=== PATIENT | male | born 1985 | race Caucasian/White ===

== ENCOUNTER 2022-07-31 09:54 | Inpatient (IN) | payer OTHER ==
[2022-07-31 10:32] VITALS: BMI 32.5
[2022-07-31] MEDS ORDERED: DICYCLOMINE HCL 10 MG CAPSULE PO PRN (12:00)
[2022-07-31] MEDS ORDERED: MAGNESIUM HYDROX 2400MG/30ML ORAL SUSPENSION 30 ML CUP PO PRN (12:00)
[2022-07-31] MEDS ORDERED: MAGNESIUM CITRATE 300 ML BOTTLE PO PRN (12:00)
[2022-07-31] MEDS ORDERED: LOPERAMIDE HCL 2 MG CAPSULE PO PRN (12:00)
[2022-07-31] MEDS ORDERED: ONDANSETRON *ODT* 4 MG TABLET SL PRN (12:00)
[2022-07-31] MEDS ORDERED: chlordiazePOXIDE HCL 25 MG CAPSULE PO PRN (12:00)
[2022-07-31] MEDS ORDERED: ACETAMINOPHEN 325 MG TABLET (FP) PO PRN ×2 (12:00)
[2022-07-31] MEDS ORDERED: IBUPROFEN 400 MG TABLET (FP) PO PRN (12:00)
[2022-07-31] MEDS ORDERED: IBUPROFEN 600 MG TABLET (FP) PO PRN (12:00)
[2022-07-31] MEDS ORDERED: MAG HYDROX/AL HYDROX/SIMETH 30 ML UNIT-DOSE CUP PO PRN (12:00)
[2022-07-31] MEDS ORDERED: BISMUTH SUBSALICYLATE 262 MG/15 ML BTL PO PRN (12:00)
[2022-07-31] MEDS ORDERED: NALOXONE HCL (KLOXXADO) 8 MG SPRAY NS PRN (12:00)
[2022-07-31] MEDS ORDERED: FLU VACC QS2022-23(6MOS UP)/PF 60 MCG/0.5 ML SYRINGE IM ONE (12:00)
[2022-07-31] MEDS ORDERED: BENZOCAINE/MENTHOL (CHLORASEPTIC ) LOZENGE MM PRN (12:00)
[2022-07-31] MEDS: NICOTINE 10 MG CARTRIDGE (INHALER) IH PRN ×2 (13:05→20:07)
[2022-07-31] MEDS: NICOTINE 21 MG/24 HOURS TOPICAL PATCH TD SCH (13:09)
[2022-07-31] MEDS: PRENATAL VITAMINS W/ FOLIC ACID TABLET (FP) PO SCH (13:09)
[2022-07-31] MEDS: hydrOXYzine PAMOATE 25 MG CAPSULE (FP) PO SCH ×3 (13:19→22:34)
[2022-07-31 15:39] LABS: HEMATOCRIT 42.8 % (35.4-49); HEMOGLOBIN 14.7 GM/dL (11.7-16.9); MCH 29.5 pg (25.7-33.7); MCHC 34.3 g/dl (32.0-35.9); MEAN CELL VOLUME 86.1 fl (80-96); MEAN PLT VOLUME 7.4 fl (7.5-11.1); PLATELET COUNT 251 10^3/uL (134-434); RBC 4.96 M/mm3 (4.00-5.60); RDW 14.5 % (11.9-15.9); WHITE BLOOD COUNT 6.9 K/mm3 (4.0-10.0)
[2022-07-31 15:43] LABS: CALCIUM 8.5 mg/dL (8.5-10.1)
[2022-07-31 15:44] LABS: BLOOD UREA NITROGEN 9.3 mg/dL (7-18)
[2022-07-31 15:47] LABS: CREATININE 0.7 mg/dL (0.55-1.3)
[2022-07-31 15:48] LABS: BILIRUBIN,TOTAL 0.2 mg/dL (0.2-1); TOT PROT 7.3 g/dl (6.4-8.2)
[2022-07-31] MEDS: chlordiazePOXIDE HCL 25 MG CAPSULE PO SCH ×2 (16:44→22:34)
[2022-07-31] MEDS: METHOCARBAMOL 500 MG TABLET PO PRN (16:44)
[2022-07-31] MEDS ORDERED: MELATONIN 5 MG TABLETS PO SCH (22:00)
[2022-07-31] MEDS: THIAMINE HCL 100 MG TABLET (FP) PO SCH (22:34)
[2022-07-31] MEDS: QUEtiapine FUMARATE 50 MG TABLET PO PRN (22:34)
[2022-08-01] MEDS: hydrOXYzine PAMOATE 25 MG CAPSULE (FP) PO SCH ×5 (05:36→22:14)
[2022-08-01] MEDS: chlordiazePOXIDE HCL 25 MG CAPSULE PO SCH ×4 (05:36→22:14)
[2022-08-01] MEDS: PRENATAL VITAMINS W/ FOLIC ACID TABLET (FP) PO SCH (10:46)
[2022-08-01] MEDS: METHOCARBAMOL 500 MG TABLET PO PRN ×2 (10:46→17:52)
[2022-08-01] MEDS: NICOTINE 21 MG/24 HOURS TOPICAL PATCH TD SCH (10:48)
[2022-08-01] MEDS: THIAMINE HCL 100 MG TABLET (FP) PO SCH (22:13)
[2022-08-01] MEDS: QUEtiapine FUMARATE 50 MG TABLET PO PRN (22:16)
[2022-08-02] MEDS: hydrOXYzine PAMOATE 25 MG CAPSULE (FP) PO SCH ×3 (05:56→14:52)
[2022-08-02] MEDS: chlordiazePOXIDE HCL 25 MG CAPSULE PO SCH ×2 (05:57→10:31)
[2022-08-02] MEDS: METHOCARBAMOL 500 MG TABLET PO PRN (10:30)
[2022-08-02] MEDS: PRENATAL VITAMINS W/ FOLIC ACID TABLET (FP) PO SCH (10:30)
[2022-08-02] MEDS: NICOTINE 21 MG/24 HOURS TOPICAL PATCH TD SCH (10:30)
[2022-08-02 13:07] VITALS: BP 133/67; PULSE 79; RESP 17; TEMP 98.1
[2022-08-03] MEDS ORDERED: chlordiazePOXIDE HCL 10 MG CAPSULE PO PRN
[2022-08-03] MEDS ORDERED: chlordiazePOXIDE HCL 10 MG CAPSULE PO SCH (05:00)
[2022-08-04] MEDS ORDERED: chlordiazePOXIDE HCL 10 MG CAPSULE PO SCH (05:00)
[2022-08-05] MEDS ORDERED: chlordiazePOXIDE HCL 10 MG CAPSULE PO ONE (05:00)
== END 2022-08-02 14:55 | disposition left against medical advice (07) | DRG 770 ==
LOC: YASAS 09:54 → Y6N 12:19
PROVIDERS: ADMIT Allergy & Immunology; ATTEND Surgery
PROC: HZ2ZZZZ Detoxification Services for Substance Abuse Treatment (ICD-10-PCS; principal; 2022-07-31)
DX: F10.230 Alcohol dependence with withdrawal, uncomplicated (principal); F17.210 Nicotine dependence, cigarettes, uncomplicated; F10.282 Alcohol dependence with alcohol-induced sleep disorder; F41.9 Anxiety disorder, unspecified; F90.9 Attention-deficit hyperactivity disorder, unspecified type; Z86.59 Personal history of other mental and behavioral disorders; Z56.0 Unemployment, unspecified; Z59.01 Sheltered homelessness; Z88.2 Allergy status to sulfonamides; Z88.8 Allergy status to other drugs, medicaments and biological substances; Z91.013 Allergy to seafood
CPT/HCPCS: 36415; 80053; 85027; 86780; C9803-CS; G0008; Q0162; Q2036; U0003; U0005

== ENCOUNTER 2023-04-15 12:13 | Inpatient (IN) | payer OTHER ==
[2023-04-15 13:33] VITALS: BMI 30.3
[2023-04-15] MEDS ORDERED: IBUPROFEN 400 MG TABLET (FP) PO PRN (14:05)
[2023-04-15] MEDS ORDERED: hydrOXYzine PAMOATE 25 MG CAPSULE (FP) PO PRN (14:05)
[2023-04-15] MEDS ORDERED: METHOCARBAMOL 500 MG TABLET PO PRN (14:05)
[2023-04-15] MEDS ORDERED: ACETAMINOPHEN 325 MG TABLET (FP) PO PRN (14:05)
[2023-04-15] MEDS ORDERED: MAG HYDROX/AL HYDROX/SIMETH 30 ML UNIT-DOSE CUP PO PRN (14:05)
[2023-04-15] MEDS ORDERED: NICOTINE 10 MG CARTRIDGE (INHALER) IH PRN (14:05)
[2023-04-15] MEDS ORDERED: LORazepam 1 MG TABLET PO PRN (14:05)
[2023-04-15] MEDS ORDERED: LOPERAMIDE HCL 2 MG CAPSULE PO PRN (14:05)
[2023-04-15] MEDS ORDERED: NALOXONE HCL 0.4 MG/ML VIAL IM PRN (14:05)
[2023-04-15] MEDS ORDERED: NALOXONE HCL (KLOXXADO) 8 MG SPRAY NS PRN (14:05)
[2023-04-15] MEDS ORDERED: POLYETHYLENE GLYCOL (HEALTHYLAX) 3350 17 GM PACKET PO PRN (14:05)
[2023-04-15] MEDS ORDERED: DICYCLOMINE HCL 10 MG CAPSULE PO PRN (14:05)
[2023-04-15] MEDS ORDERED: IBUPROFEN 600 MG TABLET (FP) PO PRN (14:05)
[2023-04-15] MEDS ORDERED: BISMUTH SUBSALICYLATE 262 MG/15 ML BTL PO PRN (14:05)
[2023-04-15] MEDS ORDERED: guaiFENesin 600 MG TABLET.ER (FP) PO PRN (14:05)
[2023-04-15] MEDS ORDERED: BENZONATATE 200 MG CAPSULE PO PRN (14:05)
[2023-04-15] MEDS ORDERED: BENZOCAINE/MENTHOL (CHLORASEPTIC ) LOZENGE MM PRN (14:05)
[2023-04-15] MEDS ORDERED: ONDANSETRON *ODT* 4 MG TABLET SL PRN (14:05)
[2023-04-15] MEDS ORDERED: MAGNESIUM HYDROX 2400MG/30ML ORAL SUSPENSION 30 ML CUP PO PRN (14:05)
[2023-04-15 15:41] LABS: HEMATOCRIT 44.5 % (35.4-49); HEMOGLOBIN 14.5 GM/dL (11.7-16.9); MCH 28.4 pg (25.7-33.7); MCHC 32.6 g/dl (32.0-35.9); MEAN PLT VOLUME 7.6 fl (7.5-11.1); PLATELET COUNT 266 10^3/uL (134-434); RBC 5.11 M/mm3 (4.00-5.60); RDW 14.4 % (11.9-15.9); WHITE BLOOD COUNT 5.7 K/mm3 (4.0-10.0)
[2023-04-15 15:45] LABS: CALCIUM 8.8 mg/dL (8.5-10.1); POTASSIUM 4.3 mmol/L (3.5-5.1)
[2023-04-15 15:47] LABS: BLOOD UREA NITROGEN 14.3 mg/dL (7-18)
[2023-04-15 15:50] LABS: CREATININE 0.8 mg/dL (0.55-1.3)
[2023-04-15 15:52] LABS: BILIRUBIN,TOTAL 0.3 mg/dL (0.2-1); TOT PROT 7.2 g/dl (6.4-8.2)
[2023-04-15] MEDS ORDERED: PRENATAL VITAMINS W/ FOLIC ACID TABLET (FP) PO ONE ×2 (16:00→16:01)
[2023-04-15] MEDS: PRENATAL VITAMINS W/ FOLIC ACID TABLET (FP) PO SCH (16:03)
[2023-04-15] MEDS: LORazepam 2 MG TABLET PO SCH ×2 (17:30→22:15)
[2023-04-15] MEDS ORDERED: MELATONIN 5 MG TABLETS PO SCH (22:00)
[2023-04-15] MEDS ORDERED: THIAMINE HCL 100 MG TABLET (FP) PO SCH (22:00)
[2023-04-16] MEDS: LORazepam 2 MG TABLET PO SCH ×2 (05:39→10:19)
[2023-04-16] MEDS ORDERED: NICOTINE 14 MG/24 HOURS TOPICAL PATCH TD SCH (10:00)
[2023-04-16] MEDS: PRENATAL VITAMINS W/ FOLIC ACID TABLET (FP) PO SCH (10:18)
[2023-04-16] MEDS ORDERED: LACTULOSE 20 GM/30 ML UDC (FOR ORAL USE ONLY) PO SCH (14:00)
[2023-04-16 17:18] VITALS: BP 140/85; PULSE 78; RESP 18; TEMP 97.8
[2023-04-16] MEDS ORDERED: SUVOREXANT 10 MG TABLET PO PRN (22:00)
[2023-04-17] MEDS ORDERED: LORazepam 1 MG TABLET PO SCH (05:00)
[2023-04-18] MEDS ORDERED: LORazepam 0.5 MG TABLET PO PRN
[2023-04-18] MEDS ORDERED: LORazepam 0.5 MG TABLET PO SCH (05:00)
[2023-04-19] MEDS ORDERED: LORazepam 0.5 MG TABLET PO ONE (05:00)
== END 2023-04-16 17:28 | disposition left against medical advice (07) | DRG 770 ==
LOC: YASAS 12:13 → Y3N 14:58
PROVIDERS: ADMIT Allergy & Immunology; ATTEND Surgery
PROC: HZ2ZZZZ Detoxification Services for Substance Abuse Treatment (ICD-10-PCS; principal; 2023-04-15)
DX: F10.230 Alcohol dependence with withdrawal, uncomplicated (principal); F13.10 Sedative, hypnotic or anxiolytic abuse, uncomplicated; F12.10 Cannabis abuse, uncomplicated; F17.210 Nicotine dependence, cigarettes, uncomplicated; R73.9 Hyperglycemia, unspecified; R79.89 Other specified abnormal findings of blood chemistry; Z86.59 Personal history of other mental and behavioral disorders; Z87.19 Personal history of other diseases of the digestive system; Z88.2 Allergy status to sulfonamides; Z59.02 Unsheltered homelessness; Z56.0 Unemployment, unspecified
CPT/HCPCS: 36415; 80053; 82140; 83036; 85027; 86780; 87635; 87811; 93005; 93010

== ENCOUNTER 2024-03-19 08:12 | Inpatient (IN) | payer OTHER ==
[2024-03-19 09:04] VITALS: BMI 38.3
[2024-03-19] MEDS ORDERED: IBUPROFEN 400 MG TABLET (FP) PO PRN (09:37)
[2024-03-19] MEDS ORDERED: LOPERAMIDE HCL 2 MG CAPSULE PO PRN (09:37)
[2024-03-19] MEDS ORDERED: IBUPROFEN 600 MG TABLET (FP) PO PRN (09:37)
[2024-03-19] MEDS ORDERED: BISMUTH SUBSALICYLATE 524 MG/30 ML PO PRN (09:37)
[2024-03-19] MEDS ORDERED: guaiFENesin 600 MG TABLET.ER (FP) PO PRN (09:37)
[2024-03-19] MEDS ORDERED: POLYETHYLENE GLYCOL (HEALTHYLAX) 3350 17 GM PACKET PO PRN (09:37)
[2024-03-19] MEDS ORDERED: METHOCARBAMOL 500 MG TABLET PO PRN (09:37)
[2024-03-19] MEDS ORDERED: DICYCLOMINE HCL 10 MG CAPSULE PO PRN (09:37)
[2024-03-19] MEDS ORDERED: NALOXONE HCL 0.4 MG/ML VIAL IM PRN (09:37)
[2024-03-19] MEDS ORDERED: BENZONATATE 200 MG CAPSULE PO PRN (09:37)
[2024-03-19] MEDS ORDERED: MAGNESIUM HYDROX 2400MG/30ML ORAL SUSPENSION 30 ML CUP PO PRN (09:37)
[2024-03-19] MEDS ORDERED: ACETAMINOPHEN 325 MG TABLET (FP) PO PRN (09:37)
[2024-03-19] MEDS ORDERED: NALOXONE HCL (KLOXXADO) 8 MG SPRAY NS PRN (09:37)
[2024-03-19] MEDS ORDERED: chlordiazePOXIDE HCL 25 MG CAPSULE PO PRN (09:44)
[2024-03-19] MEDS ORDERED: chlordiazePOXIDE HCL 25 MG CAPSULE ONE (10:02)
[2024-03-19] MEDS: chlordiazePOXIDE HCL 25 MG CAPSULE PO ONE (10:04)
[2024-03-19] MEDS: PRENATAL VITAMINS W/ FOLIC ACID TABLET (FP) PO SCH (10:47)
[2024-03-19] MEDS: NICOTINE 14 MG/24 HOURS TOPICAL PATCH TD SCH (10:47)
[2024-03-19] MEDS: chlordiazePOXIDE HCL 25 MG CAPSULE PO SCH (10:58)
[2024-03-19] MEDS: NICOTINE POLACRILEX 4 MG LOZENGE BC PRN (12:34)
[2024-03-19] MEDS: ONDANSETRON *ODT* 4 MG TABLET SL PRN (14:57)
[2024-03-19] MEDS: hydrOXYzine PAMOATE 25 MG CAPSULE (FP) PO PRN (14:57)
[2024-03-19] MEDS: NICOTINE POLACRILEX 4 MG GUM BUC PRN (15:01)
[2024-03-19] MEDS: THIAMINE 100 MG TABLET PO SCH (22:15)
[2024-03-19] MEDS: MELATONIN 5 MG TABLETS PO SCH (22:18)
[2024-03-20] MEDS ORDERED: ESCITALOPRAM OXALATE 10 MG TABLET ONE (11:24)
[2024-03-20] MEDS: ESCITALOPRAM OXALATE 20 MG TABLET PO SCH (11:29)
[2024-03-21] MEDS: chlordiazePOXIDE HCL 25 MG CAPSULE PO SCH (05:26)
[2024-03-21] MEDS ORDERED: ESCITALOPRAM OXALATE 10 MG TABLET ONE (10:22)
[2024-03-21 11:01] LABS: HEMATOCRIT 39.1 % (35.4-49); HEMOGLOBIN 13.3 GM/dL (11.7-16.9); MCHC 34.1 g/dl (32.0-35.9); MEAN PLT VOLUME 7.5 fl (7.5-11.1); PLATELET COUNT 161 10^3/uL (134-434); RBC 4.59 M/mm3 (4.00-5.60); RDW 14.7 % (11.9-15.9); WHITE BLOOD COUNT 4.6 K/mm3 (4.0-10.0)
[2024-03-21 11:37] LABS: CHLORIDE 108 mmol/L (98-107); POTASSIUM 4.2 mmol/L (3.5-5.1); SODIUM 139 mmol/L (136-145)
[2024-03-21 11:55] LABS: BLOOD UREA NITROGEN 10.9 mg/dL (7-18)
[2024-03-21 11:56] LABS: ALBUMIN 3.2 g/dl (3.4-5.0); ANION GAP 4 mmol/L (4-13); CALCIUM 8.5 mg/dL (8.5-10.1); CO2 28 mmol/L (21-32); GLUCOSE,RANDOM 94 mg/dL (74-106)
[2024-03-21 11:58] LABS: SGPT/ALT 56 U/L (13-61)
[2024-03-21 11:59] LABS: CREATININE 0.8 mg/dL (0.55-1.3); SGOT/AST 31 U/L (15-37)
[2024-03-21 12:00] LABS: TOT PROT 6.3 g/dl (6.4-8.2)
[2024-03-21 12:01] LABS: ALK PHOS 109 U/L (45-117); BILIRUBIN,TOTAL 0.5 mg/dL (0.2-1)
[2024-03-22] MEDS ORDERED: chlordiazePOXIDE HCL 10 MG CAPSULE PO PRN
[2024-03-22] MEDS: MAG HYDROX/AL HYDROX/SIMETH 30 ML UNIT-DOSE CUP PO PRN (04:11)
[2024-03-22] MEDS: chlordiazePOXIDE HCL 10 MG CAPSULE PO SCH (05:35)
[2024-03-22] MEDS ORDERED: ESCITALOPRAM OXALATE 10 MG TABLET ONE (10:07)
[2024-03-22] MEDS ORDERED: NICOTINE POLACRILEX 2 MG GUM BUC PRN (11:46)
[2024-03-22] MEDS ORDERED: NICOTINE POLACRILEX 2 MG GUM BC PRN (11:47)
[2024-03-22] MEDS: BENZOCAINE/MENTHOL (CHLORASEPTIC ) LOZENGE MM PRN (15:07)
[2024-03-22] MEDS: guaiFENesin 600 MG TABLET.ER (FP) PO SCH (22:27)
[2024-03-23] MEDS: chlordiazePOXIDE HCL 10 MG CAPSULE PO SCH (05:40)
[2024-03-23] MEDS ORDERED: ESCITALOPRAM OXALATE 10 MG TABLET ONE (10:05)
[2024-03-23] MEDS: NICOTINE 21 MG/24 HOURS TOPICAL PATCH TD SCH (10:05)
[2024-03-24] MEDS: chlordiazePOXIDE HCL 10 MG CAPSULE PO ONE (05:34)
[2024-03-24 06:53] VITALS: BP 119/73; PULSE 74; RESP 17; TEMP 97.3
== END 2024-03-24 08:04 | disposition home or self-care (01) | DRG 775 ==
LOC: YASAS 08:12 → SUATTDRO 08:12 → Y6N 10:15
PROVIDERS: ADMIT Allergy & Immunology; ATTEND Psychiatry & Neurology Pain Medicine
PROC: HZ2ZZZZ Detoxification Services for Substance Abuse Treatment (ICD-10-PCS; principal; 2024-03-19)
DX: F10.230 Alcohol dependence with withdrawal, uncomplicated (principal); F12.20 Cannabis dependence, uncomplicated; F17.210 Nicotine dependence, cigarettes, uncomplicated; F10.280 Alcohol dependence with alcohol-induced anxiety disorder; F10.282 Alcohol dependence with alcohol-induced sleep disorder; F33.1 Major depressive disorder, recurrent, moderate; F41.9 Anxiety disorder, unspecified; K74.60 Unspecified cirrhosis of liver; Z87.19 Personal history of other diseases of the digestive system; Z86.59 Personal history of other mental and behavioral disorders; Z86.69 Personal history of other diseases of the nervous system and sense organs; Z88.2 Allergy status to sulfonamides
CPT/HCPCS: 36415; 80053; 80305; 80307; 82140; 85027; 86780; 93005; 93010; Q0162

== ENCOUNTER 2024-11-06 09:24 | Inpatient (IN) | payer OTHER ==
[2024-11-06 09:47] VITALS: BMI 39.3
[2024-11-06] MEDS ORDERED: POLYETHYLENE GLYCOL (HEALTHYLAX) 3350 17 GM PACKET PO PRN (11:02)
[2024-11-06] MEDS ORDERED: DICYCLOMINE HCL 10 MG CAPSULE PO PRN (11:02)
[2024-11-06] MEDS ORDERED: ONDANSETRON *ODT* 4 MG TABLET SL PRN (11:02)
[2024-11-06] MEDS ORDERED: BENZONATATE 200 MG CAPSULE PO PRN (11:02)
[2024-11-06] MEDS ORDERED: IBUPROFEN 400 MG TABLET (FP) PO PRN (11:02)
[2024-11-06] MEDS ORDERED: BENZOCAINE/MENTHOL (CHLORASEPTIC ) LOZENGE MM PRN (11:02)
[2024-11-06] MEDS ORDERED: guaiFENesin 600 MG TABLET.ER (FP) PO PRN (11:02)
[2024-11-06] MEDS ORDERED: LOPERAMIDE HCL 2 MG CAPSULE PO PRN (11:02)
[2024-11-06] MEDS ORDERED: ACETAMINOPHEN 325 MG TABLET (FP) PO PRN (11:02)
[2024-11-06] MEDS ORDERED: NALOXONE (NARCAN) HCL 4 MG/0.1 ML SPRAY NS PRN (11:02)
[2024-11-06] MEDS ORDERED: MAGNESIUM HYDROX 2400MG/30ML ORAL SUSPENSION 30 ML CUP PO PRN (11:02)
[2024-11-06] MEDS ORDERED: BISMUTH SUBSALICYLATE 262 MG/15 ML BTL PO PRN (11:02)
[2024-11-06] MEDS ORDERED: IBUPROFEN 600 MG TABLET (FP) PO PRN (11:02)
[2024-11-06] MEDS ORDERED: diazePAM 5 MG TABLET PO PRN (11:05)
[2024-11-06] MEDS ORDERED: diazePAM 5 MG TABLET ONE (11:13)
[2024-11-06] MEDS: diazePAM 5 MG TABLET PO SCH (11:16)
[2024-11-06] MEDS ORDERED: ESCITALOPRAM OXALATE 10 MG TABLET ONE (12:36)
[2024-11-06] MEDS: ESCITALOPRAM OXALATE 20 MG TABLET PO SCH (12:38)
[2024-11-06] MEDS: NICOTINE POLACRILEX 2 MG GUM BUC PRN (12:41)
[2024-11-06] MEDS: THIAMINE 100 MG TABLET PO SCH (22:26)
[2024-11-06] MEDS: QUEtiapine FUMARATE 100 MG TABLET (FP) PO SCH (22:28)
[2024-11-06] MEDS: MELATONIN 5 MG TABLETS PO SCH (22:28)
[2024-11-07] MEDS ORDERED: ESCITALOPRAM OXALATE 10 MG TABLET ONE (10:11)
[2024-11-07] MEDS: PRENATAL VITAMINS W/ FOLIC ACID TABLET (FP) PO SCH (10:13)
[2024-11-07] MEDS: NICOTINE 21 MG/24 HOURS TOPICAL PATCH TD SCH (10:15)
[2024-11-07] MEDS: FLU VACCINE (FLULAVAL) PF 45 MCG/0.5 ML SYRINGE 2024-2025 IM ONE (11:04)
[2024-11-07] MEDS ORDERED: levETIRAcetam 500 MG TABLET (FP) PO SCH (11:15)
[2024-11-07] MEDS: GABAPENTIN 300 MG CAPSULE PO SCH (13:15)
[2024-11-07 13:51] LABS: HEMATOCRIT 40.9 % (35.4-49); HEMOGLOBIN 13.4 GM/dL (11.7-16.9); MCH 27.5 pg (25.7-33.7); MCHC 32.8 g/dl (32.0-35.9); MEAN CELL VOLUME 83.9 fl (80-96); MEAN PLT VOLUME 7.9 fl (7.5-11.1); PLATELET COUNT 204 10^3/uL (134-434); RBC 4.87 M/mm3 (4.00-5.60); RDW 15.2 % (11.9-15.9); WHITE BLOOD COUNT 4.8 K/mm3 (4.0-10.0)
[2024-11-07 14:00] LABS: POTASSIUM 4.1 mmol/L (3.5-5.1)
[2024-11-07 14:13] LABS: TOT PROT 6.7 g/dl (6.4-8.2)
[2024-11-07 14:15] LABS: ALBUMIN 3.8 g/dl (3.4-5.0); BLOOD UREA NITROGEN 7.5 mg/dL (7-18); CALCIUM 8.5 mg/dL (8.5-10.1)
[2024-11-07 14:18] LABS: CREATININE 0.9 mg/dL (0.55-1.3)
[2024-11-07 14:19] LABS: BILIRUBIN,TOTAL 0.5 mg/dL (0.2-1)
[2024-11-08] MEDS: diazePAM 5 MG TABLET PO SCH (05:50)
[2024-11-08] MEDS ORDERED: ESCITALOPRAM OXALATE 10 MG TABLET ONE (09:40)
[2024-11-08] MEDS: METHOCARBAMOL 500 MG TABLET PO PRN (09:41)
[2024-11-08] MEDS: hydrOXYzine PAMOATE 25 MG CAPSULE (FP) PO PRN (09:41)
[2024-11-09] MEDS: diazePAM 5 MG TABLET PO SCH (05:32)
[2024-11-09] MEDS ORDERED: ESCITALOPRAM OXALATE 10 MG TABLET ONE (09:25)
[2024-11-09 11:24] LABS: SGOT/AST 112 U/L (15-37); SGPT/ALT 163 U/L (13-61)
[2024-11-09] MEDS: MAG HYDROX/AL HYDROX/SIMETH 30 ML UNIT-DOSE CUP PO PRN (13:38)
[2024-11-09] MEDS: NICOTINE POLACRILEX 4 MG LOZENGE BC PRN (18:35)
[2024-11-10] MEDS: diazePAM 5 MG TABLET PO ONE (05:27)
[2024-11-10 05:56] VITALS: RESP 18
[2024-11-10] MEDS ORDERED: ESCITALOPRAM OXALATE 10 MG TABLET ONE (09:08)
[2024-11-10 09:14] VITALS: BP 131/87; PULSE 86; TEMP 97.5
[2024-11-10] MEDS ORDERED: NALOXONE (NYS OPIOID OVERDOSE PROGRAM) 4 MG/0.1 ML SPRAY NS SCH (10:30)
== END 2024-11-10 10:16 | disposition home or self-care (01) | DRG 775 ==
LOC: YASAS 09:24 → Y6N 11:45
PROVIDERS: ADMIT Allergy & Immunology; ATTEND Surgery
PROC: HZ2ZZZZ Detoxification Services for Substance Abuse Treatment (ICD-10-PCS; principal; 2024-11-06)
DX: F10.230 Alcohol dependence with withdrawal, uncomplicated (principal); F17.210 Nicotine dependence, cigarettes, uncomplicated; F32.A Depression, unspecified; F41.9 Anxiety disorder, unspecified; K74.60 Unspecified cirrhosis of liver; Z86.69 Personal history of other diseases of the nervous system and sense organs; Z86.59 Personal history of other mental and behavioral disorders; Z87.19 Personal history of other diseases of the digestive system; Z88.2 Allergy status to sulfonamides; Z88.8 Allergy status to other drugs, medicaments and biological substances; Z59.00 Homelessness unspecified
CPT/HCPCS: 36415; 80053; 80305; 80307; 83036; 84450; 84460; 85027; 86780; 93005; 93010